=== PATIENT | male | born 1950 | race Asian ===

== ENCOUNTER 2016-06-13 08:31 | Day surgery (SDC) | payer OTHER ==
[~2016-06-13] VITALS: Ht 157.5 cm; Wt 45.4 kg
[2016-06-13] MEDS ORDERED: MOTRIN600 MG PO (09:32)
[2016-06-13] MEDS ORDERED: fentaNYL 0.05 MG/ML VIAL ONE (09:44)
[2016-06-13] MEDS ORDERED: MIDAZOLAM 2 MG/2 ML VIAL ONE (09:45)
[2016-06-13] MEDS ORDERED: LIDOCAINE 2% 100 MG/5 ML UJET TP ONE (09:45)
== END 2016-06-13 11:05 | disposition home or self-care (01) ==
LOC: MDS 08:31 → MMU 08:31 → MDS 11:05
PROVIDERS: ATTEND Internal Medicine Gastroenterology
DX: Z12.11 Encounter for screening for malignant neoplasm of colon (principal); B96.81 Helicobacter pylori [H. pylori] as the cause of diseases classified elsewhere; K44.9 Diaphragmatic hernia without obstruction or gangrene; K29.90 Gastroduodenitis, unspecified, without bleeding
CPT/HCPCS: 36415; 43239; 45378; 86677; J2250; J3010; J7030; J7120